=== PATIENT | female | born 1960 | race Two or more races ===

== ENCOUNTER 2017-06-24 01:37 | Emergency (ER) | payer OTHER ==
[~2017-06-24] VITALS: Ht 162.6 cm; Wt 75.0 kg
[2017-06-24] MEDS ORDERED: FAMOTIDINE 20 MG/2 ML ONE (02:15)
[2017-06-24] MEDS ORDERED: ONDANSETRON 2MG/ML, 2ML ONE (02:15)
[2017-06-24] MEDS ORDERED: MAALOX/HYOSCYAMINE/LIDOCAINE 45 ML BTL ONE (02:15)
[2017-06-24 02:18] LABS: BASOPHILS # (AUTO) 0.04 x10^3/uL (0-0.1); BASOPHILS % (AUTO) 0 % (0-1); EOSINOPHILS # (AUTO) 0.21 x10^3/uL (0-0.4); EOSINOPHILS % (AUTO) 2 % (1-7); LYMPHOCYTES # (AUTO) 3.23 x10^3/uL (1-3.4); LYMPHOCYTES % (AUTO) 32 % (22-44); MD NO; MEAN CORPUSCULAR HEMOGLOBIN 27.9 pg (27.0-34.8); MEAN CORPUSCULAR HGB CONC 33.8 g/dL (32.4-35.8); MEAN CORPUSCULAR VOLUME 82.5 fL (80-100); MEAN PLATELET VOLUME 8.4 fL (7.4-10.4); MONOCYTES # (AUTO) 0.91 x10^3/uL (0.2-0.8); MONOCYTES % (AUTO) 9 % (2-9); NEUTROPHILS # (AUTO) 5.62 x10^3/uL (1.8-6.8); NEUTROPHILS % (AUTO) 56 % (42-75); PLATELET COUNT 203 x10^3/uL (130-400); RED BLOOD COUNT 4.69 x10^6/uL (3.82-5.3); RED CELL DISTRIBUTION WIDTH 13.4 % (9.6-15.2)
[2017-06-24 02:29] LABS: ALANINE AMINOTRANSFERASE 24 U/L (12-78); ALBUMIN 3.6 g/dL (3.4-5.0); ANION GAP 6 mmol/L (5-15); CALCIUM 8.3 mg/dL (8.5-10.1); CHLORIDE 104 mmol/L (98-107); CREATININE 0.85 mg/dL (0.55-1.02)
[2017-06-24] MEDS ORDERED: ONDANSETRON 2MG/ML, 2ML IVPush ONE (02:30)
[2017-06-24] MEDS ORDERED: MAALOX/HYOSCYAMINE/LIDOCAINE 45 ML BTL PO ONE (02:30)
[2017-06-24] MEDS ORDERED: FAMOTIDINE 20 MG/2 ML IVP ONE (02:30)
[2017-06-24 02:31] LABS: ALKALINE PHOSPHATASE 126 U/L (45-117); BILIRUBIN,TOTAL 0.6 mg/dL (0.2-1.0); TOTAL PROTEIN 7.8 g/dL (6.4-8.2)
[2017-06-24 02:33] LABS: TROPONIN I < 0.015 ng/mL (0.000-0.045)
[2017-06-24 03:04] VITALS: BP 133/74
== END 2017-06-24 03:38 | disposition home or self-care (01) ==
LOC: ED 02:02
DX: T18.108A Unspecified foreign body in esophagus causing other injury, initial encounter (principal); E03.9 Hypothyroidism, unspecified; E78.5 Hyperlipidemia, unspecified; Z79.82 Long term (current) use of aspirin; W45.8XXA Other foreign body or object entering through skin, initial encounter; Y93.89 Activity, other specified; Y92.89 Other specified places as the place of occurrence of the external cause; Y99.8 Other external cause status
CPT/HCPCS: 36415; 71045; 80053; 84484; 85025; 93005; 96374; 96375; 99285; J2405; S0028

== ENCOUNTER 2019-05-12 17:59 | Emergency (ER) | payer SELFPAY ==
[~2019-05-12] VITALS: Ht 157.5 cm; Wt 68.7 kg
[2019-05-12] MEDS ORDERED: LEVOTHYROXINE (18:26)
--- NOTE | 2019-05-12 18:26 | NUR ---
PT TO ED FOR WALKER STARTING <1 HOUR AGO. PT CONNECTED TO MONITORS. VSS. AWAITING EDMD ASSESSMENT. NO NEEDS EXPRESSED. CALL LIGHT WITHIN REACH.
[2019-05-12] MEDS ORDERED: SODIUM CHLORIDE FLUSH 10ML SYR IVF ONE (19:00)
[2019-05-12] MEDS ORDERED: DIPHENHYDRAMINE 50 MG/ML, 1ML IVPush ONE (19:00)
[2019-05-12] MEDS ORDERED: METOCLOPRAMIDE 5 MG/ML, 2ML IVPush ONE (19:00)
[2019-05-12] MEDS ORDERED: SODIUM CHLORIDE 0.9% 1,000ML IVBOLUS ONE (19:00)
[2019-05-12 19:02] LABS: BASOPHILS # (AUTO) 0.03 x10^3/uL (0-0.1); BASOPHILS % (AUTO) 0 % (0-1); EOSINOPHILS % (AUTO) 2 % (1-7); LYMPHOCYTES # (AUTO) 2.65 x10^3/uL (1-3.4); LYMPHOCYTES % (AUTO) 27 % (22-44); MD NO; MEAN CORPUSCULAR HEMOGLOBIN 27.9 pg (27.0-34.8); MEAN CORPUSCULAR VOLUME 84.5 fL (80-100); MEAN PLATELET VOLUME 8.8 fL (7.4-10.4); MONOCYTES # (AUTO) 0.78 x10^3/uL (0.2-0.8); MONOCYTES % (AUTO) 8 % (2-9); NEUTROPHILS % (AUTO) 63 % (42-75); PLATELET COUNT 223 x10^3/uL (130-400); RED BLOOD COUNT 4.88 x10^6/uL (3.82-5.3); RED CELL DISTRIBUTION WIDTH 13.6 % (9.6-15.2)
[2019-05-12] MEDS ORDERED: METOCLOPRAMIDE 5 MG/ML, 2ML ONE (19:03)
[2019-05-12] MEDS ORDERED: DIPHENHYDRAMINE 50 MG/ML, 1ML ONE (19:03)
[2019-05-12 19:11] LABS: ALBUMIN 3.8 g/dL (3.4-5.0); ANION GAP 5 mmol/L (5-15); CALCIUM 9.5 mg/dL (8.5-10.1); CHLORIDE 103 mmol/L (98-107); CREATININE 0.87 mg/dL (0.55-1.02)
[2019-05-12 19:12] LABS: INTERNATIONAL NORMALIZED RATIO 0.96 (0.93-1.1); PROTHROMBIN TIME 10.1 Seconds (9.6-11.5)
--- NOTE | 2019-05-12 19:12 | NUR ---
ORDERS RECEIVED. PIV ESTABLISHED AND PT MEDICARED PER AUG. LABS DRAWN. VSS. AWAITING RESULTS.
[2019-05-12 19:40] VITALS: BP 129/79
--- NOTE | 2019-05-12 19:41 | NUR ---
PT RESTING IN ROOM WITH LIGHTS DIMMED AND FAMILY AT BS. VSS. NO NEEDS EXPRESSED. CALL LIGHT WITHIN REACH. PT REPORTS PAIN DOWN FROM 810 TO 2. CHART UP FOR RECHECK.
== END 2019-05-12 20:13 | disposition home or self-care (01) ==
LOC: ED 20:05
DX: G43.C0 Periodic headache syndromes in child or adult, not intractable (principal); E78.5 Hyperlipidemia, unspecified; E03.9 Hypothyroidism, unspecified
CPT/HCPCS: 36415; 70450; 80048; 82040; 85025; 85610; 85730; 96361; 96374; 96375; 99284; J1200; J2765; J7030